=== PATIENT | male | born 1990 | race Caucasian/White ===

== ENCOUNTER 2023-02-01 23:33 | Emergency (ER) | payer BC ==
[2023-02-02] LABS: ESTIMATED GFR 103 mL/min (>60)
[2023-02-02] MEDS ORDERED: Sodium Chloride 0.9% 1,000 ML IV SCH (00:15)
[2023-02-02 01:01] LABS: CORONAVIRUS COVID-19 NAA NEGATIVE (NEGATIVE)
[2023-02-02] MEDS ORDERED: levETIRAcetam 500 MG Tab PO ONE (01:12)
== END 2023-02-02 01:40 | disposition home or self-care (01) ==
LOC: FB.ED 23:33
DX: S01.512A Laceration without foreign body of oral cavity, initial encounter (principal); G40.409 Other generalized epilepsy and epileptic syndromes, not intractable, without status epilepticus; E86.0 Dehydration; Z20.822 Contact with and (suspected) exposure to COVID-19; Z79.899 Other long term (current) drug therapy; W22.8XXA Striking against or struck by other objects, initial encounter; Y92.89 Other specified places as the place of occurrence of the external cause; Y99.0 Civilian activity done for income or pay
CPT/HCPCS: 0240U; 36415; 70450; 71046; 80053; 80177; 81001; 85025; 86140; 96360; 99284; 99284-25; A9270-GY; J7030